=== PATIENT | female | born 2000 | race Hispanic/Latino ===

== ENCOUNTER 2020-06-26 06:12 | Outpatient (CLI) | payer OTHER ==
[~2020-06-26] VITALS: Ht 167.6 cm; Wt 65.4 kg
[2020-06-26 06:49] VITALS: BP 108/60
--- NOTE | 2020-06-26 07:54 | IPNPDOC ---
Text Note Date of Service The patient was seen on 06/26/20. NOTE 20 YO AT 27,5 WEEKS SEEN FOR DECREASED MOVEMENT RECENT TRANSFER . NO RECORDS NO LABS AVAILABLE, PAST HISTORY 07/21 40 WEEKS 6,1 LBS RISK FACTORS BILATERAL PYELECTASIS ECHOGENIC BOWEL FOCUS PLACENTAL LAKES REVIEWED NST CATEGORY 1 STRIP NO CONTRACTIONS NO DECELERATIONS MODERATE VARIABILITY BASELINE NORMAL . PRECAUTIONS GIVEN DISCHARGED UNDELIVERED VS,Fishbone, I+O VS, Fishbone, I+O Vital Signs Date Time Temp Pulse Resp B/P (MAP) Pulse Ox O2 Delivery O2 Flow Rate FiO2 06/26/20 06:49 97.8 93 16 108/60 (76) Garrett Bermeo MD Jun 26, 2020 07:54
== END 2020-06-26 07:22 | disposition home or self-care (01) ==
LOC: M LDO 06:12
PROVIDERS: ATTEND Obstetrics & Gynecology
DX: O36.8120 Decreased fetal movements, second trimester, not applicable or unspecified (principal); Z3A.27 27 weeks gestation of pregnancy
CPT/HCPCS: 59025; G0378; G0463

== ENCOUNTER 2020-07-28 16:25 | Outpatient (CLI) | payer OTHER ==
[~2020-07-28] VITALS: Ht 165.1 cm; Wt 66.2 kg
[2020-07-28] MEDS ORDERED: PENICILLIN G POTASSIUM IV 5 MU in D5W MINI-BAG PLUS 100 ML IV STA (16:32)
[2020-07-28 16:43] VITALS: BP 118/67
[2020-07-28] MEDS ORDERED: LR 1,000 ML IV ONE (16:45)
--- NOTE | 2020-07-28 16:54 | IPNPDOC ---
Text Note Date of Service The patient was seen on 07/28/20. NOTE 20 yo at 32+2 weeks gestation presents to L&D after her clinic appointment today. She reported lots of cramping and some discharge this afternoon during her appointment. She was evaluated by [facility] and found to NOT have ruptured membranes, but her cervix was 1/50/-2, and very soft. She was sent to L&D for evaluation. She reports to me cramping and discharge. She denies any bleeding or severe pain. She also denies any dysuria, fevers/chills, SOB, chest pain, or n/v. She endorses movement. Chaperoned by L&D RN Vitals - VSS, afebrile, normotensive, non tachycardic General - AAOX3, sitting up in bed, NAD Abdomen - Gravid uterus appropriate size for gestational age, no fundal tenderness. Pelvic - Cervix unchanged, FT/50/-3, posterior on my exam >6 hours after initial exam. Extremities - no edema FHR tracing - Cat I with moderate variability, +accels, no decels. Sporadic ctx on toco. UA - SG 1.025, trace leuk est, neg nitrite, neg bacteria UC - pending BTMZ administered prophylactically. PCN given for GBS UNK. IV fluids given. Ctx spaced considerably on toco. Cervix unchanged after repeat exam >6 hours after first exam. Suspect dehydration contributing to symptoms based on UA. No evidence of labor. Will follow up on urine culture. Recommended aggressive PO hydration. Patient to return to care tomorrow afternoon for 2nd dose of BTMZ. Discharged home with return precautions. She is to return to care sooner for worsening symptoms. All questions answered. 45 minutes of patient care FLACO Madera DO July 28, 2020 16:54
[2020-07-28] MEDS ORDERED: BETAMETHASONE SOLUSPAN 6MG/ML 5ML VIAL (J0702 PER 3MG) IM SCH (17:00)
[2020-07-28 17:45] LABS: APPEARANCE, URINE HAZY (CLEAR); BACTERIA, URINE AUTO NEGATIVE (NEGATIVE); BILIRUBIN, URINE AUTO NEGATIVE (NEGATIVE); BLOOD, URINE BLOOD NEGATIVE (NEGATIVE); COLOR, URINE YELLOW (YELLOW); GLUCOSE, URINE (UA) AUTO 1+ mg/dL (NEGATIVE); KETONE, URINE AUTO NEGATIVE (NEGATIVE); LEUKOCYTE ESTERASE, URINE AUTO TRACE (NEGATIVE); MUCUS, URINE SMALL (NEGATIVE); NITRITE, URINE AUTO NEGATIVE (NEGATIVE); PROTEIN, URINE AUTO 1+ mg/dL (NEGATIVE); RBC, URINE AUTO 0 /HPF (0-3); SPECIFIC GRAVITY URINE AUTO 1.025 (1.002-1.035); SQUAMOUS EPITHELIAL CELL UR AU 2 /HPF (0-6); UROBILINOGEN, URINE AUTO 0.2 mg/dL (0.0-2.0); WBC, URINE AUTO 3 /HPF (0-3)
[2020-07-28] MEDS ORDERED: PRENTAB9 PO (17:56)
[2020-07-28] MEDS ORDERED: ACETAMINOPHEN 500 MG TAB PO PRN (18:30)
[2020-07-28 20:33] VITALS: BP 117/72
[2020-07-28] MEDS ORDERED: PENICILLIN G POTASSIUM IV 2.5 MU in IV 1 EA IV SCH (21:39)
[2020-07-28 21:48] VITALS: BP 113/62
== END 2020-07-28 22:01 | disposition home or self-care (01) ==
LOC: M LDO 16:25
PROVIDERS: ATTEND Registered Nurse Maternal Newborn
DX: O99.820 Streptococcus B carrier state complicating pregnancy (principal); Z3A.32 32 weeks gestation of pregnancy; O99.283 Endocrine, nutritional and metabolic diseases complicating pregnancy, third trimester; E86.0 Dehydration
CPT/HCPCS: 59025; 81001; 87081; 87086; 96372; 96374; 96376; G0378; G0463; J0702

== ENCOUNTER 2020-07-29 17:20 | Outpatient (CLI) | payer OTHER ==
[~2020-07-29] VITALS: Ht 165.1 cm; Wt 69.7 kg
[~2020-07-29 17:20] MED LIST: PRENTAB9 PO
[2020-07-29 17:27] VITALS: BP 113/65
[2020-07-29] MEDS ORDERED: BETAMETHASONE SOLUSPAN 6MG/ML 5ML VIAL (J0702 PER 3MG) IM ONE (17:35)
== END 2020-07-29 17:54 | disposition home or self-care (01) ==
LOC: M LDO 17:20
PROVIDERS: ATTEND Obstetrics & Gynecology
DX: O99.820 Streptococcus B carrier state complicating pregnancy (principal); Z3A.32 32 weeks gestation of pregnancy; O99.283 Endocrine, nutritional and metabolic diseases complicating pregnancy, third trimester; E86.0 Dehydration
CPT/HCPCS: 96372; G0378; J0702

== ENCOUNTER 2020-08-23 22:16 | Outpatient (CLI) | payer OTHER ==
[~2020-08-23] VITALS: Ht 165.1 cm; Wt 68.0 kg
[2020-08-23 22:30] VITALS: BP 116/80
== END 2020-08-23 23:45 | disposition home or self-care (01) ==
LOC: M LDO 22:16
PROVIDERS: ATTEND Obstetrics & Gynecology Reproductive Endocrinology
DX: O26.893 Other specified pregnancy related conditions, third trimester (principal); N89.8 Other specified noninflammatory disorders of vagina; Z3A.35 35 weeks gestation of pregnancy; Z79.899 Other long term (current) drug therapy
CPT/HCPCS: 59025; 76815; G0378; G0463

== ENCOUNTER 2020-09-06 21:18 | Outpatient (CLI) | payer OTHER ==
[~2020-09-06] VITALS: Ht 167.6 cm; Wt 71.5 kg
[2020-09-06 21:35] VITALS: BP 126/75
[2020-09-06] MEDS ORDERED: ACET325C5 PO (21:41)
[2020-09-06] MEDS ORDERED: diphenhydrAMINE 50MG CAP PO ONE ×2 (21:55→22:00)
[2020-09-06] MEDS ORDERED: PERCOCET 5MG/325MG TAB PO ONE (22:00)
--- NOTE | 2020-09-06 22:00 | IPNPDOC ---
Text Note Date of Service The patient was seen on 09/06/20. NOTE 20 yo at 37+5 weeks gestation presents to L&D with the complaint of contractions and vaginal pressure. She denies any bleeding or leakage of fluid. She endorses movement. Chaperoned by RN Vitals - VSS, afebrile, normotensive, non tachycardic General - AAOX3, sitting up in bed, NAD Abdomen - Gravid uterus, no fundal tenderness Cervix - 2/50/-3. FHR tracing - Reactive with moderate variability, +accels, no decels. Ctx irregular on toco. Not in active labor. Offered pain medication and repeat cervical exam in 1-2 hours. Ms. Snow declined another exam, and desired just pain medication before returning home. Percocet and benadryl PO administered. She has an appointment scheduled in the office tomorrow. Return to care sooner for any urgent concerns. All questions answered. 30 minutes of patient care DO OLVIN Saldivar,Vic, I+O VS, Vic, I+O Vital Signs Date Time Temp Pulse Resp B/P (MAP) Pulse Ox O2 Delivery O2 Flow Rate FiO2 09/06/20 21:35 98.5 81 18 126/75 (92) FLACO NDIAYE DO Sep 06, 2020 22:00
== END 2020-09-06 22:23 | disposition home or self-care (01) ==
LOC: M LDO 21:18
PROVIDERS: ATTEND Obstetrics & Gynecology
DX: O47.1 False labor at or after 37 completed weeks of gestation (principal); Z3A.37 37 weeks gestation of pregnancy
CPT/HCPCS: 59025; G0378; G0463

== ENCOUNTER 2020-09-12 03:43 | Inpatient (IN) | payer OTHER ==
[~2020-09-12] VITALS: Ht 165.1 cm; Wt 62.0 kg
[2020-09-12] VITALS (7 sets, daily range): BP systolic 116–137; BP diastolic 60–91
[~2020-09-12 03:43] MED LIST changes: +ACET325C5 PO
[2020-09-12] MEDS ORDERED: TRANEXAMIC ACID INJection 1,000 MG in NS 100 ML IV PRN (04:00)
[2020-09-12] MEDS ORDERED: NS 1,000 ML IV SCH ×2 (04:00→04:05)
[2020-09-12] MEDS ORDERED: CARBOPROST TROMETHAMINE 250 MCG/ML AMP IM PRN (04:00)
[2020-09-12] MEDS ORDERED: OXYTOCIN DRIP 30 UNITS in IV 1 EA IV PRN (04:00)
[2020-09-12] MEDS ORDERED: METHYLERGONOVINE MALEATE 0.2 MG/ML VIAL (J2210) IM PRN (04:00)
[2020-09-12] MEDS ORDERED: LIDOCAINE 1% MDV 20ML VIAL INFIL PRN (04:00)
[2020-09-12] MEDS ORDERED: LR 1,000 ML IV SCH (04:00)
[2020-09-12] MEDS ORDERED: INSULIN IV RATE CHANGE DOCUMENTATION ML/HR XX SCH (04:05)
[2020-09-12] MEDS ORDERED: OXYTOCIN 30 UNITS IN 0.9% NaCl 500ML IV BAG (J2590) As Ordered ONE (04:27)
[2020-09-12] MEDS ORDERED: INSULIN REGULAR IN 0.9 % NACL 100 UNIT in IV 1 EA IV SCH ×2 (04:30)
[2020-09-12 04:31] LABS: HEMATOCRIT 39.1 % (36.0-47.0); HEMOGLOBIN 12.7 g/dl (12.0-15.5); MEAN CORPUSCULAR HGB CONC 32.5 g/dl (32.0-36.5); MEAN CORPUSCULAR VOLUME 92.2 fl (80.0-96.0); PLATELET COUNT, AUTOMATED 186 10^3/uL (150-450); RED BLOOD COUNT 4.24 10^6/uL (4.00-5.40); WHITE BLOOD COUNT 13.3 10^3/uL (4.0-10.0)
[2020-09-12] MEDS ORDERED: FENTANYL 2MCG/ML ROPIVACAINE 0.2% IN 0.9% NACL 100ML IVBAG As Ordered ONE (04:37)
[2020-09-12 05:26] LABS: CORD GAS HCO3 A 21.1 MEQ/L; CORD GAS O2 SAT A 63.4 %; CORD GAS PCO2 A 46.8 mmHg; CORD GAS PH A 7.272 UNITS; CORD GAS PO2 A 28.2 mmHg; CORD GAS SBC A 18.8 MEQ/L; CORD GAS TCO2 A 22.5 MEQ/L
[2020-09-12 05:27] LABS: CORD GAS ABE V -8.5; CORD GAS O2 SAT V 78.3 %; CORD GAS PCO2 V 40.9 mmHg; CORD GAS PH V 7.262 UNITS; CORD GAS SBC V 17.4 MEQ/L; CORD GAS TCO2 V 19.3 MEQ/L
[2020-09-12] MEDS ORDERED: IBUPROFEN 600MG TAB PO PRN (05:40)
[2020-09-12] MEDS ORDERED: DIBUCAINE 1% OINTMENT 30GM TOP PRN (05:40)
[2020-09-12] MEDS ORDERED: DOCUSATE SODIUM 100MG CAPSULE PO PRN (05:40)
[2020-09-12] MEDS ORDERED: MEASLES,MUMPS,RUBELLA VACCINE INJ (MMR-II) (90707) SC SCH (05:40)
[2020-09-12] MEDS ORDERED: ACETAMINOPHEN TAB 650MG DOSE (2X325MG) PO PRN (05:40)
--- NOTE | 2020-09-12 05:40 | HPEPDOC ---
Obstetrical History & Physical General Date of Admission Sep 12, 2020 at 03:53 History of Present Illness 20yo at 38w6d by LMP c/w 7wk US with CYNTHIA Sep presents to L&D in active labor. Pt states contractions have been ongoing throughout the day and worsening in intensity. Denies LOF, VB or discharge. +GFM. is complicated by GRZEGORZ mid-, GDM and suspected renal pyelectasis. Chief Complaint: Contractions, term Information Provided By: Patient Dating Final EDC: Sep 20, 2020 Antepartum Course Diagnos(e)s 1. Transfer of care from [place] 2. Renal pelviectasis on follow up growth US on arrival to [place] 3. No 3rd TM glucose screen, possible GDM 4. PTL earlier this s/p steroids for lung maturity Past Medical History Past Obstetrical History : Past Obstetrical History: Multigravida Date of Delivery: Sep 01, 2014 Gestation: 39 Type of Delivery: Spontaneous Vaginal Del. Sex of Infant: Male Complications: No ROUTE SERVICE REPRESENTATIVE History: No pertinent history Past Medical History Medical History denies Surgical History: Denies/None Family History Significant Family History: No pertinent family hx Social History Marital Status: Family situation: Spouse/partner home * Smoker: non-smoker Alcohol: Denies Imunizations Tdap status: current Allergies Coded Allergies: No Known Allergies (Unverified , 06/26/20) Medications Scheduled No.137/Iron/Folic Acd ( Vitamin Tablet) 1 Each Tablet, 1 TAB PO DAILY Miscellaneous Medications Acetaminophen (Tylenol) 325 Mg Capsule, 1,000 MG PO Physical Examination Physical Examination GENERAL: Alert and oriented times three. BREAST: . ABDOMEN: Gravid and non-tender to touch. FETUS: Is vertex (VTX) by sterile vaginal examination (SVE) HEART RATE: Regular rate LUNGS: normal work of breathing . EXTREMITIES: No edema. No clonus. Vital Signs/I&O Vital Signs Date Time Temp Pulse Resp B/P (MAP) Pulse Ox O2 Delivery O2 Flow Rate FiO2 09/12/20 04:30 73 134/78 (96) Laboratory Data 24H LABS Laboratory Tests 2 09/12/20 04:24: Nucleated Red Blood Cells % (auto) 0.0 09/12/20 04:46: Serology Scanned Report Hepatitis B Testing 09/12/20 05:09: Cord Arterial Blood pH 7.272, Cord Arterial Blood PCO2 46.8, Cord Arterial Blood PO2 28.2, Cord Arterial Blood HCO3 21.1, Cord Arterial Blood Total CO2 22.5, Cord Arterial Blood Base Excess -6.0, Cord Arterial Base Excess (Standard 18.8, Cord Arterial Bld Oxygen Saturation 63.4, Cord Venous Blood pH 7.262, Cord Venous Blood PCO2 40.9, Cord Venous Blood PO2 36.0, Cord Venous Blood HCO3 18.0, Cord Venous Blood Total CO2 19.3, Cord Venous Base Excess (Actual) -8.5, Cord Venous Base Excess (Standard) 17.4, Cord Venous Blood Oxygen Saturation 78.3 CBC/BMP Laboratory Tests 09/12/20 04:24 Pertinent Laboratoy Data Blood Type: A+ RBC Antibody Screen: Negative HIV: Negative Hepatitis B: Negative Rapid Plasma Reagin: Nonreactive Rubella: Immune Varicella: Immune Group B Streptococcus: Negative Anatomy Ultrasound Normal Anatomy: Yes Steroid Therapy Steroid Therapy: Yes Vaginal Examination Dilation: 7 cm Effacement: 100% Station: +1 Presentation: Cephalic presentation Assessment Heart Rate (FHR): 120 Variability: Moderate Accelerations: Positive Decelerations: None Tocometer Contractions: Yes Frequency: regular, every 1-3 min. Assessment/Plan Assessment Pt is a 20yo at 38w6d by LMP c/w 7wk US, CYNTHIA 20 Sep -Active labor at term -[facility] from [facility] [place] - pelviectasis on US in July -Incomplete glucose screen in 3rd TM - possible GDM Plan Admit and orient. Civil Geotechnical Engineer and consent. Diet: clear. Group B Streptococcus (GBS) negative Labs and intravenous (IV) per unit protocol. Limited counseling, pt in significant pain on admission, unable to receive epidural prior to delivery DIANE HURTADO M.D. Sep 12, 2020 05:40
--- NOTE | 2020-09-12 05:49 | DNPDOC ---
[facility] Delivery Note Delivery Note DATE OF DELIVERY: 12 Sep 2020 PREDELIVERY DIAGNOSIS: 38 6/7 weeks' gestation and labor. POST DELIVERY DIAGNOSIS: Delivered. PROCEDURE: Spontaneous vaginal delivery. Repair of second degree perineal laceration TRACK PRODUCTION ENGINEER: Dr. Hurtado ANESTHESIA: none ESTIMATED BLOOD LOSS: 300 mL. FINDINGS: 7pound 0 ounce male infant, Score 9/9, nuchal cord times 1. DELIVERY SUMMARY: Patient is a 20-year-old 2 now para 2001 who was a dmitted to labor and delivery in active labor at 7cm. SROM occurred and pt progressed to C/C/+3 with urge to push. With good pushing effort, patient delivered head in direct OA position over an intact perineum. Head restituted to CASSY and loose nuchal cord x1 noted, reduced at perineum. Remainder of infant quickly delivered with spontaneous maternal pushing efforts. Male crying and moving all extremities at delivery, placed on mother's chest. Delayed cord clamping x60 seconds performed. Cord was then clamped and cut. Cord gasses obtained due to difficulty monitoring fetus during pushing. Placenta delivered intact. Perineum inspected with small 2nd degree perineal laceration noted. Lidocaine injected and laceration repaired in usual fashion. Good hemostasis noted. Total EBL 300cc, mom and baby both stable immediately DIANE HURTADO M.D. Sep 12, 2020 05:49
[2020-09-12] MEDS: IBUPROFEN 800 MG TAB PO PRN ×2 (08:31→18:10)
[2020-09-12] MEDS: PRENATAL VITAMINS CHEWABLE TABLET PO SCH (08:31)
[2020-09-12] MEDS: ACETAMINOPHEN 500 MG TAB PO PRN (12:47)
[2020-09-13] MEDS: ACETAMINOPHEN 500 MG TAB PO PRN ×2 (00:24→09:05)
[2020-09-13] MEDS: IBUPROFEN 800 MG TAB PO PRN (05:40)
[2020-09-13 06:00] VITALS: BP 124/72
[2020-09-13] MEDS ORDERED: IBUP80TA PO (06:22)
--- NOTE | 2020-09-13 06:25 | DS.PDOC ---
Discharge Summary General Date of Admission Sep 12, 2020 at 03:53 Date of Discharge September 13, 2020 Discharge Summary HOSPITAL COURSE: Ms. Snow is a 20 yo G2 now P2 who underwent an uncomplicated on 12Sep2020 in the morning after being admitted for active labor. Her course was unremarkable. On her day of discharge she met all appropriate discharge criteria. She was ambulating, voiding, tolerating a regular diet, and had minimal lochia. DISCHARGE MEDICATIONS: Please see below. ALLERGIES: Please see below. PHYSICAL EXAMINATION ON DISCHARGE: VITAL SIGNS: Please see below. GENERAL: AAOX3, NAD ABDOMINAL EXAMINATION: Fundus firm at U-2. No fundal tenderness EXTREMITIES: No edema PSYCHIATRIC EXAMINATION: Affect appropriate LABORATORY DATA: Please see below. ACTIVITY: Pelvic rest for 6 weeks DIET: Regular DISCHARGE PLAN: Discharge home DISPOSITION: Discharge home on 13Sep2020 DISCHARGE INSTRUCTIONS: 1. Nothing in the vagina for 6 weeks ITEMS TO FOLLOWUP ON ON OUTPATIENT: 1. Call to schedule a visit for 6 weeks post delivery DISCHARGE CONDITION: Stable. TIME SPENT ON DISCHARGE: Greater than 20 minutes. Flaco Mccoy DO Vital Signs/I&Os Vital Signs Date Time Temp Pulse Resp B/P (MAP) Pulse Ox O2 Delivery O2 Flow Rate FiO2 09/13/20 06:00 96.9 70 20 124/72 (89) 97 Room Air I&O- Last 24 Hours up to 6 AM 09/13/20 05:59 Output Total 600 ml Balance -600 ml Discharge Medications Scheduled No.137/Iron/Folic Acd ( Vitamin Tablet) 1 Each Tablet, 1 TAB PO DAILY, (Reported) Scheduled PRN Ibuprofen (Ibuprofen) 800 Mg Tablet, 800 MG PO Q8HP PRN for PAIN LEVEL 6-10 Miscellaneous Medications Acetaminophen (Tylenol) 325 Mg Capsule, 1,000 MG PO, (Reported) Allergies Coded Allergies: No Known Allergies (Unverified , 06/26/20) FLACO MCCOY DO Sep 13, 2020 06:25
[2020-09-13] MEDS: PRENATAL VITAMINS CHEWABLE TABLET PO SCH (09:05)
== END 2020-09-13 12:25 | disposition home or self-care (01) | DRG 807 ==
LOC: M LDO 03:43 → M LDI 03:53 → M OBS 08:13
PROVIDERS: ADMIT Obstetrics & Gynecology; ATTEND Obstetrics & Gynecology
PROC: 10E0XZZ Delivery of Products of Conception, External Approach (ICD-10-PCS; principal; 2020-09-12)
PROC: 0KQM0ZZ Repair Perineum Muscle, Open Approach (ICD-10-PCS; 2020-09-12)
DX: O69.81X0 Labor and delivery complicated by cord around neck, without compression, not applicable or unspecified (principal); Z37.0 Single live birth; Z3A.38 38 weeks gestation of pregnancy; O70.1 Second degree perineal laceration during delivery